=== PATIENT | male | born 1965 | race African-American/Black ===

== ENCOUNTER 2025-07-15 19:27 | Emergency (ER) | payer OTHER ==
[~2025-07-15] VITALS: Ht 162.6 cm; Wt 77.1 kg
[2025-07-15 19:27] VITALS: PULSE 78; RESP 20; TEMP 98.6
[2025-07-15 20:01] LABS: BASOPHILS % 1.3 % (0.0-1.0); EOSINOPHILS % 2.2 % (0.0-6.0); LYMPHOCYTES % 26.3 % (18.0-39.1); MONOCYTES % 13.5 % (4.4-11.3); NEUTROPHILS % 56.4 % (38.7-80.0); RED CELL DISTRIBUTION WIDTH 15.2 % (11.7-14.4)
[2025-07-15 20:16] LABS: CORONAVIRUS COVID-19 AG NEGATIVE (NEGATIVE)
[2025-07-15] MEDS: METHYLPREDNISOLONE SOD SUCC 125 MG/2ML VIAL IV ONE (20:17)
[2025-07-15 20:32] LABS: EST GLOMERULAR FILTRATION RATE 53.0 ML/MIN (>=60)
[2025-07-15 20:38] VITALS: PULSE 79; RESP 22; O2SAT 97
[2025-07-15] MEDS: IPRATROPIUM BROMIDE 0.02% 2.5 ML NEB NEB ONE (20:48)
[2025-07-15] MEDS: ALBUTEROL SULF 0.083% NEB SOLN 3 ML NEB NEB STA (20:49)
[2025-07-15] MEDS ORDERED: MEDROL4 M2 PO (21:25)
[2025-07-15] MEDS ORDERED: AZITHROMYCIN250 MG PO (21:25)
[2025-07-15] MEDS ORDERED: VENTOLIN HFA18 GM INH (21:25)
[2025-07-15 21:50] VITALS: BP 163/83; PULSE 75; RESP 20; O2SAT 98
== END 2025-07-15 21:51 | disposition home or self-care (01) ==
LOC: ER 19:45
DX: R06.02 Shortness of breath (principal); J20.9 Acute bronchitis, unspecified; R05.9 Cough, unspecified; I10 Essential (primary) hypertension; E11.65 Type 2 diabetes mellitus with hyperglycemia; R94.31 Abnormal electrocardiogram [ECG] [EKG]; Z86.73 Personal history of transient ischemic attack (TIA), and cerebral infarction without residual deficits; F17.210 Nicotine dependence, cigarettes, uncomplicated
CPT/HCPCS: 36415; 71045; 80053; 83880; 84484; 85025; 87428; 93005; 94640; 94799; 99284; J2919